=== PATIENT | female | born 1965 | race Caucasian/White ===

== ENCOUNTER 2020-03-28 10:15 | Outpatient (REF) | payer MEDICAID, SELFPAY ==
[2020-03-28 21:21] LABS: Anion Gap 8.1 mmol/L (3-11); BUN 11 mg/dL (7-18); CO2 28.9 mmol/L (21.0-32.0); CREATININE 0.76 mg/dL (0.55-1.02); Calcium 9.3 mg/dL (8.5-10.1); Calculated LDL 89 mg/dL (<100); Chloride 101 mmol/L (98-107); Cholesterol 193 mg/dL (<200); Glucose 112 mg/dL (74-106); HDL Cholesterol 65 mg/dL (40-60); Sodium 138 mmol/L (136-145); Triglyceride 199 mg/dL (<150)
== END 2020-03-28 10:35 ==
LOC: NCHCN 10:15
PROVIDERS: PCP Nurse Practitioner Community Health; Visit Provider Nurse Practitioner Community Health
DX: E78.2 Mixed hyperlipidemia (principal); E10.9 Type 1 diabetes mellitus without complications
CPT/HCPCS: 80048; 80061

== ENCOUNTER 2020-09-27 12:54 | Outpatient (REF) | payer MEDICAID, SELFPAY ==
[2020-09-27 21:43] LABS: ALT 15 U/L (14-59); AST 14 U/L (15-37); Albumin 3.8 g/dL (3.4-5.0); Alkaline Phosphatase 82 U/L (46-116); Anion Gap 11.7 mmol/L (3-11); BUN 5 mg/dL (7-18); Bilirubin, Total 0.5 mg/dL (0.2-1.0); CO2 26.3 mmol/L (21.0-32.0); CREATININE 0.66 mg/dL (0.55-1.02); Calcium 9.1 mg/dL (8.5-10.1); Chloride 100 mmol/L (98-107); Glucose 106 mg/dL (74-106); Potassium 3.8 mmol/L (3.5-5.1); Sodium 138 mmol/L (136-145); Total Protein 6.9 g/dL (6.4-8.2)
== END 2020-09-27 13:14 ==
LOC: NCHCN 12:54
PROVIDERS: PCP Nurse Practitioner Community Health; Visit Provider Nurse Practitioner Community Health
DX: R10.9 Unspecified abdominal pain (principal)
CPT/HCPCS: 80053

== ENCOUNTER 2020-10-02 17:28 | Outpatient (REF) | payer MEDICAID, SELFPAY ==
[2020-10-05 22:29] LABS: Patient Race White; SARS-CoV-2 RNA Undetected (Undetected); SARS-CoV-2 Specimen Source Nasal
== END 2020-10-02 17:48 ==
LOC: NCHCN 17:28
PROVIDERS: PCP Nurse Practitioner Community Health; Visit Provider Nurse Practitioner Family
DX: J02.9 Acute pharyngitis, unspecified (principal)
CPT/HCPCS: U0003

== ENCOUNTER 2022-01-13 02:06 | Outpatient (CLI) | payer MEDICAID, SELFPAY ==
[2022-01-13 10:22] LABS: Source Nasal/Nares
[2022-01-13 14:08] LABS: COVID-19 PCR Negative (Negative)
== END 2022-01-13 02:07 | disposition home or self-care (01) ==
LOC: LBO 02:07
PROVIDERS: PCP Nurse Practitioner Community Health; Visit Provider Student in an Organized Health Care Education/Training Program
DX: Z20.822 Contact with and (suspected) exposure to COVID-19 (principal); Z01.818 Encounter for other preprocedural examination
CPT/HCPCS: 87635

== ENCOUNTER 2022-01-14 12:52 | Day surgery (SDC) | payer MEDICAID, SELFPAY ==
[2022-01-14 13:04] VITALS: BP 163/88; PULSE 87; RESP 16; TEMP 36.5; O2SAT 100
--- NOTE | 2022-01-14 13:51 | PDOC.DSDIS_ITS ---
Discharge Plan Disposition Patient Disposition: HOME Condition: Stable Discharge Details Reason For Visit: Cyst Removal Attending Provider: Robert Reeder Primary Care Provider: Mary Sorto Home Meds and New Rx's Prescriptions: Continued aspirin [Adult Aspirin Regimen] 81 mg tablet,delayed release (DR/EC) 81 mg PO DAILY 0RF fluticasone propionate [Allergy Relief (fluticasone)] 50 mcg/actuation spray,suspension 2 spray intranasal DAILY 0RF Rx Instructions: administer into each nostril hydrochlorothiazide 25 mg tablet 25 mg PO DAILY 0RF meloxicam 15 mg tablet 15 mg PO DAILY PRN0RF omeprazole 40 mg capsule,delayed release(DR/EC) 40 mg PO DAILY 0RF pravastatin 20 mg tablet 20 mg PO DAILY 0RF cholecalciferol (vitamin D3) [Vitamin D3] 125 mcg (5,000 unit) Tablet DAILY 0RF Discharge Instructions Additional Instructions: Discharge Instructions Activity: You should keep the hand elevated as much as possible for the first few days. You may use the other fingers as tolerated but avoid trying to do too much too soon. You may perform light activities. Dressing/Cast: Your splint should stay in place at all times. Do NOT get it wet. You may loosen the GENNA wrap if you feel it is too tight and then rewrap more loosely. Medications: - You should take Tylenol and Ibuprofen for pain control. - You may apply ice over the finger. Follow-up: 7-10 days Referrals: Robert Reeder MD [ [facility] STAFF PHYSICIAN] - Activity:: Activity as Tolerated Remove Dressings/Wound Care:: 72 hours Shower/Bathe:: 72 hours Diet:: As Tolerated Discharge Orders Discharge Orders: Discharge Order (Routine); Ordered 01/14/22 Ordered By: Johnna Hyde DS: Diagnosis Discharge Diagnosis (1) Digital mucous cyst of finger of right hand: Status: Acute
[2022-01-14] MEDS: Sodium Bicarbonate 50 MEQ/50 ML VIAL (14:41)
[2022-01-14] MEDS: Lidocaine 1% Multi-Dose 50 ML VIAL (14:41)
[2022-01-14 15:05] VITALS: BP 161/82; PULSE 62; RESP 16; TEMP 36.2; O2SAT 97
--- NOTE | 2022-01-14 20:34 | W.PM.OP ---
Date of service: 01/14/22 Time of Service: 14:55 Operative Note Operative Note DATE OF PROCEDURE: 01/14/22 PRE-OP DIAGNOSIS: Right Middle Finger Mucous Cyst POST-OP DIAGNOSIS: same PROCEDURE: Right Middle Finger Mucous Cyst Excision SURGEON: Robert Reeder ANESTHESIA TYPE: Local By Surgeon Refer to Anesthesia Record ESTIMATED BLOOD LOSS: 5 PATHOLOGY: none sent TOURNIQUET TIME: 0 COMPLICATIONS: None Patient was transported to: same day Patient's condition: stable Indications: I have seen Leigh Ann in clinic for symptoms of a digital mucous cyst. The mass persisted and caused pain to direct contact and with use. The diagnosis of a mucous cyst was made. The symptoms had not responded to conservative measures. I discussed cyst excision with the patient. I reviewed the risks of the procedure to include, but not limited to, bleeding, infection, pain, stiffness, recurrence, damage to nerves or vessels. Despite these risks, the patient elected to proceed. Findings: There was a cyst of the distal phalanx, arising from the DIP joint, although in two primary compartments - one superficial to the tendon and capsul and one penetrating through the capsule. The cyst and its capsule was removed and an arthrotomy at the cyst location performed. Procedure Description: Leigh Ann was greeted in the preoperative holding area where the correct side was identified and marked. The consent was reviewed with the patient and signed. All questions were answered. She was taken back to the operating room. The patient was placed into the supine position on the operating room table with the right arm on an arm board. All bony prominences were well padded. No prophylactic antibiotics were administered since this was a clean, elective hand surgical case. The right arm was then prepped with Chloraprep and draped in a standard fashion with stockinette and extremity drape. A timeout to confirm correct identity, side and site, procedure, allergies, anesthesia, and medical concerns was performed. A digital block was then performed using 1% lidocaine buffered with sodium bicarbonate. This was allowed time to set up completely and was tested before proceeding with the case. A longitudinal incision was then made overlying the cyst. The skin was incised sharply. Full-thickness flaps were then elevated to expose the cyst. The cyst capsule was then removed with a rongeur. This larger cyst seem to be more superficial lying on top of the extensor tendon and the capsule. The cyst capsule was removed. Further inspection showed that there is a second lobule of the cyst which is penetrating adjacent to the extensor tendon and through the capsule into the DIP joint. Using the rongeur, I was able to penetrate into the DIP joint creating a small arthrotomy from the origin of the mucous cyst. The finger was irrigated and once again checked to make sure that all components of the cyst were removed. The skin was then closed using a #4-0 nylon in interrupted fashion. The finger was dressed with Xeroform, 4 x 4, conform dressing. The patient tolerated the procedure well and was returned to the Same Day Surgery area in a stable condition suffering no known complication.
== END 2022-01-14 15:39 | disposition home or self-care (01) ==
PROVIDERS: PCP Nurse Practitioner Community Health; Visit Provider Student in an Organized Health Care Education/Training Program
PROC: (CPT 26160; principal; 2022-01-14 15:45)
DX: M25.841 Other specified joint disorders, right hand (principal)
CPT/HCPCS: 26160